=== PATIENT | female | born 1975 | race Native Hawaiian/Other Pacific Islander ===

== ENCOUNTER 2022-08-21 15:52 | Emergency (ER) | payer OTHER ==
[~2022-08-21] VITALS: Ht 167.6 cm; Wt 127.0 kg
[2022-08-21 16:08] VITALS: BP 140/98; TEMP 97.2
[2022-08-21 16:47] LABS: PLATELET COUNT 351 K/uL (152-353)
[2022-08-21 16:57] LABS: POTASSIUM 3.4 mmol/L (3.6-5.2); SODIUM 139 mmol/L (136-145)
== END 2022-08-21 17:52 | disposition home health service (06) ==
LOC: ED 15:52
PROVIDERS: Emergency Medicine Emergency Medical Services
DX: R09.1 Pleurisy (principal); I10 Essential (primary) hypertension; K85.90 Acute pancreatitis without necrosis or infection, unspecified
CPT/HCPCS: 36415; 80053; 83735; 84484; 85027; 85379; 85610; 93005; 96360; 99284